=== PATIENT | female | born 1950 | race Hispanic/Latino ===

== ENCOUNTER → 2020-12-11 | Outpatient (CLI) | payer OTHER | END | disposition home or self-care (01) | LOC: RAH 07:33 | PROVIDERS: ATTEND Internal Medicine Cardiovascular Disease | DX: R19.00 Intra-abdominal and pelvic swelling, mass and lump, unspecified site (principal); R16.0 Hepatomegaly, not elsewhere classified | CPT/HCPCS: 76700 ==

== ENCOUNTER 2020-12-30 09:56 | Emergency (ER) | payer OTHER ==
[~2020-12-30] VITALS: Ht 160 cm; Wt 68.0 kg
[2020-12-30] MEDS ORDERED: IOHEXOL-350 50ML VIAL IV ONE (09:59)
[2020-12-30] MEDS ORDERED: NITROGLYCERIN 2 MG VIAL IV ONE (09:59)
[2020-12-30] MEDS ORDERED: IOHEXOL 350 MG/ML 100ML INFUS..BTL IV ONE (09:59)
[2020-12-30] MEDS ORDERED: LIDOCAINE HCL 400MG/20ML VIAL ONE (09:59)
[2020-12-30] MEDS ORDERED: HEPARIN 10,000 UNIT/10ML (1,000 UNIT/ML) VIAL ONE (09:59)
[2020-12-30] MEDS ORDERED: EPINEPHRINE 1MG SYG 10ML ONE ×2 (10:18→12:00)
[2020-12-30] MEDS ORDERED: HEPARIN 5,000 UNIT VIAL ONE (10:19)
[2020-12-30] MEDS ORDERED: ADENOSINE 6MG VIAL IV ONE (10:19)
[2020-12-30] MEDS ORDERED: NITROGLYCERIN 50MG/D5W 250ML 1 BOT ONE (10:20)
[2020-12-30] MEDS ORDERED: SODIUM BICARB 8.4% 50ML SYRINGE ONE (12:00)
[2020-12-30] MEDS ORDERED: ATROPINE 1MG SYG IVP ONE (12:00)
[2020-12-30] MEDS ORDERED: NOREPINEPHRINE BITARTRATE 1 MG/1 ML ML IV ONE (12:00)
== END 2020-12-30 13:18 ==
LOC: EDH 09:56
DX: I46.9 Cardiac arrest, cause unspecified (principal); I21.3 ST elevation (STEMI) myocardial infarction of unspecified site; I35.0 Nonrheumatic aortic (valve) stenosis; E78.00 Pure hypercholesterolemia, unspecified
CPT/HCPCS: 31500 ×2; 71045; 92950 ×2; 93005; 93880; 99285; J0153; J0171 ×2; J0461; J1644 ×2; J3490 ×5; 99281; Q9967